=== PATIENT | male | born 1995 | race Two or more races ===

== ENCOUNTER 2017-05-10 23:18 | Emergency (ER) | payer SELFPAY ==
[2017-05-10] MEDS ORDERED: Sodium Chloride 0.9% 1,000 ML IV SCH (23:45)
[2017-05-10] MEDS ORDERED: LORazepam 2 MG/ML MDV IVPUSH ONE (23:45)
--- NOTE | 2017-05-10 23:45 | EDM.PDOC ---
ED HPI GENERAL MEDICAL PROBLEM - General Chief Complaint: Headache Stated Complaint: DIZZY AND HEADACHE Time Seen by Provider: 05/10/17 23:38 Source of Information: Reports: Patient History Limitations: Reports: No Limitations - History of Present Illness INITIAL COMMENTS - FREE TEXT/NARRATIVE: 21-year-old male presents to the ED with vague symptoms of headache and dizziness nausea and jitteriness. He reports that he is on tramadol 100 mg 3 times daily for knee pain and has been taking this medicine for greater than 6 months. He ran out yesterday last tablet was yesterday morning. Current symptoms suggest tramadol withdrawal. He is having mild diarrhea. He's nauseated he has a headache he hasn't been able to eat or drink. He's extremely restless and agitated. He reports that he drank a beer and a half in the hopes that would help him sleep but it did not help. Denies taking any other street drugs. Aching tramadol apparently for severe knee near knee pain of unclear etiology. The paranasal for 21-year-old to have arthritis in his knees. No previous surgical procedures to his knees. Onset: Gradual Onset Date: 05/09/17 Duration: Hour(s): Location: Reports: Generalized (Feels very anxious agitated unable to relax. Feels his legs and arms wish to move on their own.) Quality: Reports: Other (Restless and agitated with associated nausea.) Severity: Moderate Improves with: Reports: None Worsens with: Reports: None Context: Reports: Other (Withdrawal from tramadol low-dose opioid) Associated Symptoms: Reports: Loss of Appetite, Malaise, Nausea/Vomiting, Other (Mild diarrhea. Agitation and restlessness.). 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 Denies: Fever, Chills HEENT: Reports: No Symptoms Respiratory: Reports: No Symptoms Cardiovascular: Reports: No Symptoms Endocrine: Reports: No Symptoms GI/Abdominal: Reports: Diarrhea (Mild.), Nausea, Vomiting (Vomited only once.) : Reports: No Symptoms Musculoskeletal: Reports: Joint Pain (Both knees chronically. Etiology not identified in the ED.) Skin: Reports: No Symptoms Neurological: Reports: Dizziness, Headache, Tremors, Weakness, Other Psychiatric: Reports: Agitation, Anxiety, Mood Lability Hematologic/Lymphatic: Reports: No Symptoms Immunologic: Reports: No Symptoms - Physical Exam Exam: See Below Exam Limited By: No Limitations General Appearance: Alert, Moderate Distress, Other (Does have alcohol on his breath and admits to having a beer and a half earlier tonight to help sleep it did not help.) Eye Exam: Bilateral Eye: Normal Inspection Throat/Mouth: Normal Inspection, Normal Lips, Normal Oropharynx Head Exam: Atraumatic, Normocephalic Neck: Normal Inspection, Supple, Non-Tender, Full Range of Motion. No: Lymphadenopathy (L), Lymphadenopathy (R) Respiratory/Chest: No Respiratory Distress, Lungs Clear, Normal Breath Sounds, No Accessory Muscle Use Cardiovascular: Normal Peripheral Pulses, Regular Rate, Rhythm, No Edema, No Gallop, No Murmur, No Rub GI/Abdominal: Normal Bowel Sounds, Soft, Non-Tender, No Organomegaly, No Abnormal Bruit, No Mass, Pelvis Stable Neuro Exam (Abbreviated): Alert, Oriented, CN II-XII Intact, Normal Cognition, Normal Gait, No Motor/Sensory Deficits Extremities: Normal Inspection, Normal Range of Motion, Non-Tender, No Pedal Edema, Monse's Sign Psychiatric: Normal Affect, Normal Mood Skin Exam: Warm, Dry, Intact, Normal Color, No Rash Course - Vital Signs Last Recorded V/S: Last Vital Signs Temp 36.6 C 05/10/17 23:30 Pulse 88 05/10/17 23:30 Resp 16 05/10/17 23:30 BP 151/90 H 05/10/17 23:30 Pulse Ox 98 05/10/17 23:30 Orthostatic Blood Pressure [ 129/82 Standing] Orthostatic Blood Pressure [ 139/100 Sitting] Orthostatic Blood Pressure [ 147/88 Supine] - Orders/Labs/Meds Orders: Active Orders 24 hr Category Date Time Status Orthostatic Vital Signs [RC] ASDIRECTED Care 05/10/17 23:38 Active DRUG SCREEN, URINE [URCHEM] Stat Lab 05/11/17 01:20 Received Meds: Medications Discontinued Medications Generic Name Dose Route Start Last Admin Trade Name Jeanine PRN Reason Stop Dose Admin Sodium Chloride 1,000 mls @ 999 mls/hr 05/10/17 23:45 05/10/17 23:51 Normal Saline IV 999 mls/hr ASDIRECTED NAREN Administration Lorazepam 1 mg 05/10/17 23:45 05/10/17 23:54 Ativan IVPUSH 05/10/17 23:46 1 mg ONETIME ONE Administration Lorazepam 1 mg 05/11/17 00:57 05/11/17 01:03 Ativan IVPUSH 05/11/17 00:58 1 mg ONETIME ONE Administration Metoclopramide HCl 7.5 mg 05/10/17 23:46 05/10/17 23:51 Reglan IVPUSH 05/10/17 23:47 7.5 mg ONETIME ONE Administration Tramadol HCl 100 mg 05/10/17 23:47 05/10/17 23:53 Ultram PO 05/10/17 23:48 100 mg ONETIME ONE Administration - Radiology Interpretation Free Text/Narrative:: 21-year-old male presents to the ED with rather vague symptoms but the primary problem is agitation and anxiety restlessness inability to sleep. History suggests that he's been on tramadol 100 mg 3 times daily for a long period of time for bilateral knee pain. The cause of the knee pain is not identified. At any rate he ran out of medication a day and a half ago. His current symptoms are therefore due to tramadol withdrawal. He was found to be slightly orthostatic. Plan tramadol 100 mg by mouth. IV normal saline at open given Ativan 1 mg IV and Reglan 7.5 mg IV to relieve his agitation and nausea. - Re-Assessments/Exams Free Text/Narrative Re-Assessment/Exam: 05/11/17 00:57 prior to discharge the patient stated he was feeling anxious once again. He had been sleeping for the most part since he was admitted to the ED attending receiving the initial dose of Reglan and Ativan. Will give him a further dose of Ativan 1 mg IV before being discharged. Prescription written for 24 tablets of tramadol 100 mg strength to be utilized in a strict fashion to wean from the medication completely over the next 20 days. He does not have a primary care physician but advised strongly to seek out one if he is going to reside in [place]. Departure - Departure Time of Disposition: 01:15 Disposition: Home, Self-Care 01 Condition: Fair Clinical Impression: Opioid withdrawal delirium, acute, hyperactive - Discharge Information Prescriptions: traMADol [Ultram] 100 mg PO ONETIME #24 tablet Instructions: Opioid Withdrawal Referrals: PCP,None [Primary Care Provider] - Forms: ED Department Discharge Additional Instructions: Evaluation the emergency room tonight in regards to symptoms related to tramadol withdrawal. This includes headache, dizziness, nausea ,diarrhea, agitation, restlessness. You identified to be slightly low on fluids in the were therefore given 800 mils of normal saline intravenously. He received medications Ativan 1 mg and Reglan 7.5 mg to provide acute relief of withdrawal symptoms. You are also given a tramadol 100 mg tablet in the ED. This medication is not meant to be used long-term and is addicting. It however needs to be withdrawn slowly over a period of 10-14 days. I would strongly suggest that you discuss this with your personal physician and get off this medication completely. If you are staying in our community must follow-up with a local practitioner for chronic pain management as chronic pain is not managed through the emergency department. I will provide you with enough medication to get to through the next few days but suggest decreasing the medication to twice daily every 12 hours for the next 5 days and then reducing it to 1 and 1/2 daily for 5 days , then 1/2 tablet twice daily for 5 days then 1/2 tablet once daily for 5 days and off. - My Orders Last 24 Hours: My Active Orders 05/10/17 23:38 Orthostatic Vital Signs [RC] ASDIRECTED 05/11/17 01:20 DRUG SCREEN, URINE [URCHEM] Stat - Assessment/Plan Last 24 Hours: My Active Orders 05/10/17 23:38 Orthostatic Vital Signs [RC] ASDIRECTED 05/11/17 01:20 DRUG SCREEN, URINE [URCHEM] Stat
[2017-05-10] MEDS ORDERED: Metoclopramide 10 MG/2 ML SDV IVPUSH ONE (23:46)
[2017-05-10] MEDS ORDERED: traMADol 50 MG Tab PO ONE (23:47)
[2017-05-11] MEDS ORDERED: LORazepam 2 MG/ML MDV IVPUSH ONE (00:57)
== END 2017-05-11 01:25 | disposition home or self-care (01) ==
LOC: JD.ED 23:18
DX: F11.221 Opioid dependence with intoxication delirium (principal); F90.9 Attention-deficit hyperactivity disorder, unspecified type
CPT/HCPCS: 80306; 96361; 96374; 96375; 99284; A9270; J2060; J2765; J7040